=== PATIENT | female | born 1965 | race Caucasian/White ===

== ENCOUNTER 2016-10-29 18:12 | Inpatient (IN) | payer OTHER ==
[~2016-10-29] VITALS: Ht 170.2 cm; Wt 98.0 kg
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
[2016-10-29 18:52] VITALS: BP 162/100; PULSE 74; RESP 16; TEMP 98.8; O2SAT 96
[2016-10-29 18:57] VITALS: BP 162/100; PULSE 73; RESP 16; TEMP 98.8; O2SAT 97
[2016-10-29 19:16] LABS: BLOOD, URINE NEG (NEG); GLUCOSE,URINE 1000 mg/dL (NEG); KETONE, URINE 80 mg/dL (NEG); MUCUS URINE MANY /lpf (OCC); NITRITE,URINE NEG (NEG); SQUAMOUS EPITHELIAL CELL URINE 1 /hpf (0-5); URINE COLOR YELLOW (YELLW/STRAW)
[2016-10-29 19:17] LABS: COMMENT (UR) CATH-CULT NOT IND; CULTURE IF INDICATED CATH CULTURE NOT IND
[2016-10-29 19:23] LABS: AUTOMATED NEUTROPHIL # 3.9 TH/MM3 (1.8-7.7); BASOPHIL % 0.4 % (0.0-2.0); EOSINOPHIL # 0.1 TH/MM3 (0-0.4); EOSINOPHIL % 1.8 % (0.0-4.0); HEMATOCRIT 37.6 % (35.0-46.0); HEMO FLAGS DIFF FINAL; LYMPH % 35.6 % (9.0-44.0); LYMPHOCYTE # 2.6 TH/MM3 (1.0-4.8); MEAN CELL VOLUME 83.7 FL (80.0-100.0); MEAN CORPUSCULAR HEMOGLOBIN 28.9 PG (27.0-34.0); MEAN CORPUSCULAR HGB CONC 34.5 % (32.0-36.0); MONO % 8.2 % (0.0-8.0); PLATELET COUNT 219 TH/MM3 (150-450); RED CELL DISTRIBUTION WIDTH 13.1 % (11.6-17.2); WHITE BLOOD COUNT 7.3 TH/MM3 (4.0-11.0)
[2016-10-29 19:30] LABS: ANION GAP 7 MEQ/L (5-15)
--- NOTE | 2016-10-29 19:33 | RADRPT ---
EXAM DATE/TIME: 10/29/2016 19:09 [facility] COMPARISON: No previous studies available for comparison. INDICATIONS : Altered mental status today. RADIATION DOSE: 56.35 CTDIvol (mGy) MEDICAL HISTORY : Non-responsive. SURGICAL HISTORY : Non-responsive. ENCOUNTER: Initial ACUITY: 1 day PAIN SCALE: Non-responsive LOCATION: Bilateral head TECHNIQUE: Multiple contiguous axial images were obtained of the head. Using automated exposure control and adj ustment of the mA and/or kV according to patient size, radiation dose was kept as low as reasonably a chievable to obtain optimal diagnostic quality images. DICOM format image data is available electro nically for review and comparison. FINDINGS: CEREBRUM: The ventricles are normal for age. No evidence of midline shift, mass lesion, hemorrhage or acute in farction. No extra-axial fluid collections are seen. POSTERIOR FOSSA: The cerebellum and brainstem are intact. The 4th ventricle is midline. The cerebellopontine angle i s unremarkable. EXTRACRANIAL: The visualized portion of the orbits is intact. SKULL: The calvaria is intact. No evidence of skull fracture. CONCLUSION: No acute disease. Erasto Ang MD on October 29, 2016 at 19:31 Board Certified Radiologist. This report was verified electronically.
[2016-10-29 19:38] VITALS: BP 157/76; PULSE 87; RESP 18; O2SAT 100
[2016-10-29 19:41] LABS: ALKALINE PHOSPHATASE 110 U/L (45-117); ALT (GPT) 69 U/L (10-53); AST (GOT) 37 U/L (15-37); BICARBONATE 26.7 MEQ/L (21.0-32.0); BLOOD UREA NITROGEN 10 MG/DL (7-18); CHLORIDE 106 MEQ/L (98-107); CREATINE KINASE 284 U/L (26-192); GLOMERULAR FILTRATION RATE 67 ML/MIN (>89); POTASSIUM 3.1 MEQ/L (3.5-5.1); SODIUM (NA) 140 MEQ/L (136-145)
[2016-10-29 19:49] LABS: ACETAMINOPHEN LESS THAN 2.0 MCG/ML (10.0-30.0); ALCOHOL LESS THAN 3 MG/DL (0-5)
[2016-10-29] MEDS ORDERED: POTASSIUM CHLOR 10 MEQ PREMIX 100 ML IV ONE (20:00)
[2016-10-29] MEDS ORDERED: POTASSIUM CHLORIDE 20 MEQ CONTROLLED RELEASE TAB PO ONE (20:00)
[2016-10-29 20:11] LABS: CKMB 6.2 NG/ML (0.5-3.6)
[2016-10-30] MEDS ORDERED: ATOR10TA15 PO (00:07)
[2016-10-30] MEDS ORDERED: LEVO100T5 PO (00:09)
[2016-10-30] MEDS ORDERED: RAMI10CA PO (00:09)
[2016-10-30] MEDS ORDERED: ESCI20TA PO (00:09)
[2016-10-30] MEDS ORDERED: TRAD5TAB PO (00:09)
[2016-10-30 02:00] VITALS: BP 154/96; PULSE 107; RESP 18; TEMP 97.1; O2SAT 97
[2016-10-30 06:22] VITALS: BP 155/72; PULSE 97; RESP 18
[2016-10-30 11:30] VITALS: BP 150/82; PULSE 86; RESP 18
[2016-10-30] MEDS ORDERED: LORazepam 2 MG/ML VIAL IM PRN ×2 (11:45)
[2016-10-30] MEDS ORDERED: ACETAMINOPHEN 325 MG TAB PO PRN (11:45)
[2016-10-30] MEDS ORDERED: MAGNESIUM HYDROXIDE SUSP 30 ML CUP PO PRN (11:45)
[2016-10-30] MEDS ORDERED: LORazepam 1 MG TAB PO PRN (11:45)
[2016-10-30 14:10] VITALS: BP 152/98; PULSE 97; RESP 18; TEMP 98.3; O2SAT 99
--- NOTE | 2016-10-30 14:20 | EKG ---
Date Performed: 10/29/2016 Time Performed: 19:34:10 PTAGE: 89 years EKG: Sinus rhythm NONSPECIFIC T-WAVE ABNORMALITY BORDERLINE ECG NO PREVIOUS TRACING DOCTOR: Ricardo Levy Interpretating Date/Time 10/30/2016 14:14:26
[2016-10-30] MEDS ORDERED: GLUCAGON 1 MG/ML VIAL OTHER PRN (22:00)
[2016-10-30] MEDS ORDERED: DEXTROSE 50% IN WATER 50 ML VIAL(D50) IV PUSH PRN (22:00)
[2016-10-31] MEDS: INSULIN ASPART SUPPLEMENTAL SCALE SQ SCH ×4 (08:00→21:00)
[2016-10-31] MEDS: REMOVE OLD PATCH T-DERMAL SCH (09:00)
[2016-10-31] MEDS: NICOTINE 21 MG/24 HR PATCH T-DERMAL SCH (09:00)
[2016-10-31 10:03] LABS: BICARBONATE 25.6 MEQ/L (21.0-32.0); BLOOD UREA NITROGEN 11 MG/DL (7-18); GLOMERULAR FILTRATION RATE 61 ML/MIN (>89)
[2016-10-31 10:31] LABS: ANION GAP 9 MEQ/L (5-15)
[2016-10-31 10:33] LABS: CHLORIDE 101 MEQ/L (98-107); CREATINE KINASE 312 U/L (26-192); HDL CHOLESTEROL 38.2 MG/DL (40.0-60.0); LDL CHOLESTEROL 118 MG/DL (0-99); SODIUM (NA) 136 MEQ/L (136-145)
[2016-10-31 10:35] LABS: POTASSIUM 3.9 MEQ/L (3.5-5.1)
[2016-10-31 10:48] LABS: CKMB 6.8 NG/ML (0.5-3.6)
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
[2016-10-31 16:31] LABS: HEMOGLOBIN A1a 1.4 %; HEMOGLOBIN Ao 79.5 %; HEMOGLOBIN F 1.6 %; HEMOGLOBIN LA1C 2.9 %; HEMOGLOBIN P3 4.1 %
[2016-10-31] MEDS: ARIPiprazole 10 MG TAB PO SCH (17:00)
[2016-10-31 18:55] VITALS: BP 163/86; PULSE 86; RESP 18; TEMP 99; O2SAT 98
[2016-10-31] MEDS: ATORVASTATIN 10 MG TAB PO SCH (21:00)
[2016-10-31] MEDS: RAMIPRIL 5 MG CAP PO SCH (21:00)
[2016-10-31] MEDS: LORazepam 0.5 MG TAB PO PRN (21:12)
[2016-10-31] MEDS: ALUMINUM/MAGNESIUM/SIMETH 30 ML CUP PO PRN (21:30)
[2016-11-01] MEDS: LORazepam 0.5 MG TAB PO PRN (02:40)
[2016-11-01] MEDS: LEVOTHYROXINE SODIUM 100 MCG TAB PO SCH (06:00)
[2016-11-01 06:05] VITALS: BP 135/87; PULSE 97; RESP 16; TEMP 98.7; O2SAT 99
[2016-11-01] MEDS: INSULIN ASPART SUPPLEMENTAL SCALE SQ SCH ×4 (08:00→20:37)
[2016-11-01] MEDS ORDERED: cloNIDine HCL 0.1 MG TAB PO PRN (08:45)
[2016-11-01] MEDS: PATIENT OWN MEDICATION (Linagliptin (Tradjenta) 5 MG) PO SCH (09:00)
[2016-11-01] MEDS: NICOTINE 21 MG/24 HR PATCH T-DERMAL SCH (09:00)
[2016-11-01] MEDS: REMOVE OLD PATCH T-DERMAL SCH (09:00)
[2016-11-01 09:26] LABS: POTASSIUM 4.1 MEQ/L (3.5-5.1)
[2016-11-01] MEDS: ARIPiprazole 10 MG TAB PO SCH (10:13)
[2016-11-01] MEDS: ALUMINUM/MAGNESIUM/SIMETH 30 ML CUP PO PRN (11:10)
[2016-11-01] MEDS ORDERED: CALCIUM CARBONATE 500 MG CHEWABLE TAB CHEW PRN (12:00)
--- NOTE | 2016-11-01 13:52 | HHI.PYPN ---
Subjective Remarks Patient seen and examined with nurse. Chart reviewed. Case discussed with nursing staff. No behavioral issues overnight, although the patient did sleep somewhat poorly. On my examination this morning, the patient is calm and cooperative with exam. No ongoing manic/hypomanic symptoms. Patient says that she recognizes that presenting behaviors were inappropriate and excessive, although she continues to believe that she has had a evangelical experience. When I inquire about the patient's son's report that the patient was going to have a republican for her relatives, the patient explains that she was merely going to have a republican to celebrate the lives of these relatives. Denies SI/HI. Denies side effects from Abilify. Was experiencing some GERD symptoms, and I note that the hospitalist has started the patient on Protonix. Hopeful for discharge tomorrow. Review of Systems Except as stated in HPI: all other systems reviewed are Neg Objective Alert: Yes [place]: Person, Place, Date, Situation Mood: Calm Affect: Appropriate Memory Intact: Comment (intact on clinical exam) Hallucinations: Other (No AVH) Delusions: No Delusion Type: Other (No delusions) Suicidal: Ideation (Denies SI) Homicidal: Ideation (Denies HI) Insight/Judgment Perhaps improving Remarks No motor abnormalities noted. Thought process linear. Grooming and hygiene good. Speech not pressured. Labs Test 11/01/16 07:20 Blood Urea Nitrogen 16 MG/DL Creatinine 0.72 MG/DL Random Glucose 238 MG/DL Calcium Level 9.5 MG/DL Sodium Level 139 MEQ/L Potassium Level 4.1 MEQ/L Chloride Level 101 MEQ/L Carbon Dioxide Level 31.0 MEQ/L Anion Gap 7 MEQ/L Estimat Glomerular Filtration Rate 85 ML/MIN Total Creatine Kinase 128 U/L Labs reviewed. GFR improved. Vitals/IOs Vital Signs Date Time Temp Pulse Resp B/P (MAP) Pulse Ox O2 Delivery O2 Flow Rate FiO2 11/01/16 06:05 98.7 97 16 135/87 (103) 99 10/30/16 02:00 Room Air Intake and Output 11/01/16 11/01/16 11/02/16 08:00 16:00 00:00 Intake Total 600 ml Balance 600 ml Assessment & Plan Problem List: (1) Bipolar disorder ICD Codes: F31.9 - Bipolar disorder, unspecified Assessment & Plan Continue Abilify as ordered; we have reviewed the R/B/A of this medication. Continue to monitor on the inpatient unit. Hospitalist input appreciated. Continue other medications and care as ordered. Justification for Cont. Inpt. 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
--- NOTE | 2016-11-01 14:40 | HHI.PR ---
Subjective Remarks Patient stated she is doing well except of annoying heartburn she usually take omeprazole Objective Vitals Vital Signs Date Time Temp Pulse Resp B/P (MAP) Pulse Ox O2 Delivery O2 Flow Rate FiO2 11/01/16 06:05 98.7 97 16 135/87 (103) 99 10/31/16 18:55 99.0 86 18 163/86 (111) 98 I/O 10/31/16 10/31/16 10/31/16 11/01/16 11/01/16 11/01/16 07:00 15:00 23:00 07:00 15:00 23:00 Intake Total 600 ml Balance 600 ml Intake Oral 600 ml Result Diagram: 10/29/16 1900 11/01/16 0720 Objective Remarks GENERAL: This is a well-nourished, well-developed patient, in no apparent distress. SKIN: No rashes, warm and dry HEAD: Atraumatic. Normocephalic. EYES: Pupils equal round and reactive. Extraocular motions intact. No scleral icterus. ENT: Nose without bleeding, or drainage, Airway patent. NECK: Trachea midline. Supple CARDIOVASCULAR: Regular rate and rhythm without murmurs, gallops, or rubs. RESPIRATORY: Fair air entry bilaterally. No wheezes, rales, or rhonchi. GASTROINTESTINAL: Abdomen soft, non-tender, nondistended. Positive bowel sounds MUSCULOSKELETAL: Extremities without clubbing, cyanosis, or edema. Pedal pulses appreciated NEUROLOGICAL: Awake and alert. Moves all extremity. Normal speech.no focal neurological deficit A/P Assessment and Plan 51 years old female with Bipolar disease Mild rhabdomyolysis resolved Hypertension GERD Hyperlipidemia Diabetes mellitus DVT prophylaxis with mobilization Recommendation: Reviewed her home medication of consolidation, resume statin and onto hyperlipidemia, resume diabetic meds All labs reviewed,ck wnl, Blood glucose fasting was 284, LDL 118, TG 193 Encourage fluids oral intake on clonidine as needed for now to control blood pressure Accu-Chek with insulin sliding scale for diabetes control PPI and Tums for heartburn DVT prophylaxis with mobilization will s/o Meme Rivera MD Nov 01, 2016 14:40
[2016-11-01 18:00] VITALS: BP 146/70; PULSE 90; RESP 16; TEMP 98.2; O2SAT 98
[2016-11-01] MEDS: RAMIPRIL 5 MG CAP PO SCH (21:22)
[2016-11-01] MEDS: ATORVASTATIN 10 MG TAB PO SCH (21:22)
[2016-11-02 04:51] VITALS: BP 115/65; PULSE 83; RESP 18; TEMP 98.4; O2SAT 96
[2016-11-02] MEDS: LEVOTHYROXINE SODIUM 100 MCG TAB PO SCH (05:59)
[2016-11-02] MEDS: INSULIN ASPART SUPPLEMENTAL SCALE SQ SCH ×2 (08:00→12:00)
[2016-11-02] MEDS: NICOTINE 21 MG/24 HR PATCH T-DERMAL SCH (09:00)
[2016-11-02] MEDS: REMOVE OLD PATCH T-DERMAL SCH (09:00)
[2016-11-02] MEDS ORDERED: PANTOPRAZOLE SOD 40 MG DELAYED RELEASE TAB PO SCH (09:00)
[2016-11-02] MEDS: ARIPiprazole 10 MG TAB PO SCH (09:02)
[2016-11-02] MEDS: PATIENT OWN MEDICATION (Linagliptin (Tradjenta) 5 MG) PO SCH (09:03)
[2016-11-02] MEDS ORDERED: ARIP1TAB12 PO (11:08)
[2016-11-02] MEDS ORDERED: PANT40TA3 PO (11:08)
--- NOTE | 2016-11-02 11:09 | HHI.DS ---
Psychiatry Discharge Summary Inpatient Psychiatric care?: Yes Advance Directive: No Reason Not Provided: Due to Patient Condition Mental Health AdvanceDirective: No Health Care Proxy: No Admission Admission Date Oct 30, 2016 at 11:49 Admission Diagnosis: (1) Bipolar disorder ICD Code: F31.9 - Bipolar disorder, unspecified Brief History Patient is a middle-aged female who gives her name as Alexandra Cunningham who presented under a [place] act by law enforcement alleging that the patient was in her bathrobe outside her house ringing a shaw. She also allegedly disrobed and threw some jewelry at the responding officers. In the emergency department, she was noted to be religiously preoccupied by the psychiatric screener. Reviewing the electronic medical record for the patient's given name, I see no prior psychiatric contact within our system. Patient seen and examined with counselor and nurse. Chart reviewed. Case discussed with nursing staff. On my examination today, the patient reports a history of depression. She says that her depressive issue remitted about a month ago and so she stopped taking her medication, which may have been citalopram or escitalopram. She says that on 10/28/16, "I got saved by the Lord. I'm the Alpha and the Hebo! Nothing can destroy me now. I guess I got to loud and was ringing a shaw." She does admit to disrobing while proclaiming this news on her lawn. She says that prior to being saved in this way she had been working long hours at work and sleeping poorly. She does not describe a history of previous hypomania/ekta. She denies any AVH at this time. Denies any SI or HI. No depressive symptoms. Besides the hinduism preoccupation, which the patient insists is not too far out of her usual practice, no delusional material elicited. The remainder of the psychiatric ROS is negative. Patient's son presents to the unit and provides the following collateral with patient's permission: He reports that the patient is usually not at all this religiose and that her recent behavior represents a significant change. He remains very concerned about his mother because he notes she was telling him as recently as last night that she was planning on hosting a democrat for her relatives. She may have had some previous mood instability in the past , per son, but nothing like how she has been behaving recently. Past psychiatric history: The patient reports a history of depression as noted above. She is not presently under psychiatric care, but it sounds like she may have seen a psychiatrist or perhaps a psychotherapist for marriage counseling in the past. She denies a history of psychiatric admissions or suicide attempts. Family history: Patient reports that her mother had dementia. Her brother had depression and completed suicide. Chemical dependency history: The patient describes herself as a social drinker. No blackouts. Denies other substance use. Social history: Patient reports that she lives with her 2 pet dogs. She is . She has 2 sons. Denies any or legal history. She is high school educated and works at [employer]. She is a [place]. No access to guns or firearms. Tobacco Use In Past 30 Days: Refused To Answer Alcohol Use: Never Hospital Course Patient was admitted to a locked, inpatient psychiatric unit. A general medical consultation was obtained. Appropriate precautions were in place throughout patient's hospital stay. Patient was seen and examined daily on the unit by psychiatry and also visited by counselor. Psychotropic medications were adjusted. Patient tolerated medications well without side effects. Patient had improvement in presenting psychiatric symptomatology during the course of her hospital stay. There was no evidence of any suicidality or homicidality on the inpatient unit. The patient remained in good behavioral control and was medication compliant. Counselor has reached out to the patient' s son on the day of discharge and reports to me that he is comfortable accepting the patient home today. On the day of discharge: Patient seen and examined with counselor. Chart reviewed. Case discussed with nursing staff. No behavioral issues noted overnight. On my examination today, the patient is requesting discharge from the inpatient psychiatric unit. Mood is reportedly stable and I can elicit no depressive or hypomanic/manic symptoms. She denies any suicidal or homicidal ideation, intent or plan on direct questioning and contracts for safety. Denies audiovisual hallucinations, and I can elicit no delusional material. Denies side effects from medications. No physical complaints. Weighing the acute, chronic, and protective factors and based on the available evidence, I hearing consultant to a reasonable degree of medical certainty that the patient is at low imminent risk of harm to self or others from a mental illness as defined under the [place] act and her level of function is adequate for outpatient care. Patient is to be discharged today with psychiatric follow-up as arranged by counselor. Patient is also to follow-up with primary care. I have counseled patient to abstain from use of drugs or alcohol. I have counseled the patient regarding warning signs for need to return to the psychiatric emergency room is part of the general safety plan. Results Blood Pressure 115 / 65 Vital Signs Date Time Temp Pulse Resp B/P (MAP) Pulse Ox O2 Delivery O2 Flow Rate FiO2 11/02/16 04:51 98.4 83 18 115/65 (82) 96 10/30/16 02:00 Room Air Laboratory Tests Test 10/31/16 08:53 11/01/16 07:20 Random Glucose 284 MG/DL (74-106) 238 MG/DL (74-106) Estimat Glomerular Filtration Rate 61 ML/MIN (>89) 85 ML/MIN (>89) Hemoglobin A1c 9.5 % (4.3-6.0) Total Creatine Kinase 312 U/L (26-192) Creatine Kinase MB 6.8 NG/ML (0.5-3.6) Triglycerides Level 193 MG/DL (42-150) LDL Cholesterol 118 MG/DL (0-99) HDL Cholesterol 38.2 MG/DL (40.0-60.0) Laboratory Results Test 10/31/16 08:53 Cholesterol Level 195 MG/DL (120-200) HDL Cholesterol 38.2 MG/DL (40.0-60.0) Hemoglobin A1c 9.5 % (4.3-6.0) LDL Cholesterol 118 MG/DL (0-99) Triglycerides Level 193 MG/DL (42-150) Summary of Procedures None done Imaging Last Impressions Head CT 10/29/16 1842 Signed Impressions: Service Date/Time: Saturday, October 29, 2016 19:09 - CONCLUSION: No acute disease. Erasto Ang MD Pending results at discharge: No Medications # of Antipsychotic meds at D/C: 1 Approp Antipsych med options 1 - Minimum of three failed multiple trials of monotherapy. 2 - Documented plan to taper to monotherapy due to previous use of multiple meds OR cross-taper in progress at D/C. 3 - Documentation of augmentation of Clozapine. 4 - Justification other than those listed in allowable values 1-3, document here : Discharge Discharge Date: Nov 02, 2016 Discharge Diagnosis: (1) Bipolar disorder in remission Diagnosis: Principal ICD Code: F31.70 - Bipolar disorder, currently in remission, most recent episode unspecified Mental Status Exam at Disch Patient is casually dressed. Patient is well groomed. Patient is awake and alert and oriented person in hospital at least. No evidence of delirium. No motor abnormalities appreciated. Speech is within normal limits for rate, tone , volume. Focus and concentration intact. Memory grossly intact on clinical exam. Mood is stable. Affect is full and reactive. Thought process linear. No delusions elicited. Denies audiovisual hallucinations and does not appear internally stimulated. Denies suicidal or homicidal ideation, intent, or plan and contracts for safety. Insight and judgment seem fair. Pt Condition on Discharge: Stable Discharge Disposition: Discharge Home Discharge Instructions Diet Instructions: Diabetic Diet Activities you can perform: Weight Bearing as Gideon Scheduled Appointment: as per counselor's notes New Medications: Aripiprazole (Aripiprazole) 10 Mg Tab 10 MG PO DAILY for Mental Health for 15 Days, #15 TAB 1 Refill Pantoprazole (Pantoprazole) 40 Mg Tab 40 MG PO DAILY for Acid Reflux for 15 Days, #15 TAB 1 Refill Continued Medications: Atorvastatin (Atorvastatin) 10 Mg Tab 10 MG PO 2 DAYS A WEEK for Cholesterol Management, #30 TAB 0 Refills Levothyroxine (Levothyroxine) 100 Mcg Tab 100 MCG PO DAILY for Thyroid, #30 TAB 0 Refills Linagliptin (Tradjenta) 5 Mg Tab 5 MG PO DAILY for Blood Sugar Management, #30 TAB 0 Refills Ramipril (Ramipril) 10 Mg Cap 10 MG PO HS, #30 CAP 0 Refills Discontinued Medications: Escitalopram (Escitalopram) 20 Mg Tab 20 MG PO DAILY, #30 TAB 0 Refills Discharge Time <= 30 minutes Discharge/Advance Care Plan Health Problems: (1) Bipolar disorder Goals to promote your health * To prevent worsening of your condition and complications * To maintain your health at the optimal level Directions to meet your goals Take your medications as prescribed Follow your dietary instruction Follow activity as directed Keep your appointments as scheduled Take your immunizations and boosters as scheduled If your symptoms worsen call your PCP, if no PCP go to Urgent Care Center or Emergency Room For 03/09 questions related to your inpatient stay or results of tests pending at discharge, please contact Dr. Jori Coats at Smoking is Dangerous to Your Health. Avoid second hand smoking Problem Qualifiers (1) Bipolar disorder: Qualified Codes: F31.11 - Bipolar disorder, current episode manic without psychotic features, mild Jori Coats MD Nov 02, 2016 11:09
== END 2016-11-02 14:45 | disposition home or self-care (01) | DRG 885 ==
LOC: NEPC 18:12 → NEDA 10-30 11:49 → EDBD 10-30 11:49 → H270 10-30 12:45 → H260 10-31 19:27
PROVIDERS: ADMIT Psychiatry & Neurology Psychiatry; ATTEND Psychiatry & Neurology Psychiatry
DX: F31.11 Bipolar disorder, current episode manic without psychotic features, mild (principal); M62.82 Rhabdomyolysis; E11.9 Type 2 diabetes mellitus without complications; I10 Essential (primary) hypertension; E87.6 Hypokalemia; E78.5 Hyperlipidemia, unspecified; E03.9 Hypothyroidism, unspecified; K21.9 Gastro-esophageal reflux disease without esophagitis; Z81.8 Family history of other mental and behavioral disorders; Z79.84 Long term (current) use of oral hypoglycemic drugs
CPT/HCPCS: 70450; 80048; 80053; 80061; 80307; 81001; 82140; 82550; 82552; 82948; 83036; 84443; 85025; 93005; 96365; J1815; J3480